=== PATIENT | male | born 1935 | race Two or more races ===

== ENCOUNTER 2018-09-22 13:53 | Inpatient (IN) | payer MEDICAID | END 2018-09-29 20:15 | disposition home health service (06) | LOC: ER 13:53 → TELE 17:14 → TELE-EAST 18:33 | PROC: 0SRS0JZ Replacement of Left Hip Joint, Femoral Surface with Synthetic Substitute, Open Approach (ICD-10-PCS; principal; 2018-09-26 13:45) | PROC: 0MBM0ZZ Excision of Left Hip Bursa and Ligament, Open Approach (ICD-10-PCS; 2018-09-26 13:45) | DX: S72.002A Fracture of unspecified part of neck of left femur, initial encounter for closed fracture (principal); I11.0 Hypertensive heart disease with heart failure; E11.9 Type 2 diabetes mellitus without complications; I50.9 Heart failure, unspecified; Z95.1 Presence of aortocoronary bypass graft; M25.569 Pain in unspecified knee; W18.30XA Fall on same level, unspecified, initial encounter; I25.10 Atherosclerotic heart disease of native coronary artery without angina pectoris; I10 Essential (primary) hypertension ==